=== PATIENT | female | born 2000 | race Two or more races ===

== ENCOUNTER → 2025-02-18 | Outpatient (CLI) | payer MEDICAID, SELFPAY ==
--- NOTE | 2025-02-18 14:07 | XR_ITS ---
Examination: OB Transvaginal ultrasound of the pelvis, complete Technique: Transvaginal sonographic images pelvis performed using luther scale imaging Exam date and time: February 18, 2025 1434 hours INDICATIONS: Irregular menses years FINDINGS: Uterus 10.8 cm pole 3.8 cm corresponding to 10 weeks 5 day gestational age Cardiac motion 167 BPM Right ovary 3.0 cm arterial flow Left ovary 2.6 cm arterial flow IMPRESSION: Viable intrauterine gestation 10 weeks 5 days.
== END | disposition home or self-care (01) ==
PROVIDERS: Referring Provider Obstetrics & Gynecology; Visit Provider Obstetrics & Gynecology
DX: Z33.1 Pregnant state, incidental (principal); N92.6 Irregular menstruation, unspecified
CPT/HCPCS: 76817